=== PATIENT | female | born 1995 | race Caucasian/White ===

== ENCOUNTER 2016-04-05 22:39 | Emergency (ER) | payer BC ==
[2016-04-05 22:48] VITALS: BP 109/61
[2016-04-05] MEDS ORDERED: NS 0.9% 1000 ML* 1,000 ML IV ONE (23:56)
[2016-04-06] MEDS ORDERED: NS 0.9% 1000 ML* 1,000 ML IV ONE
[2016-04-06] MEDS ORDERED: Lidocaine 2% VISCOUS* 15 ML UDC SWISH SPIT ONE (00:23)
[2016-04-06] MEDS ORDERED: Acetaminophen TAB* 325 MG PO ONE (00:23)
[2016-04-06 00:38] LABS: Hematocrit 39 % (35-47); Hemoglobin 12.9 g/dl (12.0-16.0); Mean Corpuscular HGB Conc 33 g/dl (31-36); Mean Corpuscular Hemoglobin 31 pg (27-31); Mean Corpuscular Volume 93 fL (80-97); Mean Platelet Volume 9 um3 (7.4-10.4); Red Blood Count 4.18 10^6/ul (4.0-5.4); Red Cell Distribution Width 12 % (10.5-15); White Blood Count 13.7 10^3/ul (3.5-10.8)
[2016-04-06 00:52] LABS: BUN/Creatinine Ratio 17.3 (8-20); Calcium 9.3 mg/dL (8.6-10.3); EGFR African American 115.9 (>60); EGFR Non-African American 90.1 (>60); Potassium 3.3 mmol/L (3.5-5.0)
--- NOTE | 2016-04-06 00:53 | ED ---
Francis Mcdaniel Michael, scribed for Jennifer Goss MD on 04/06/16 at 0015 . HPI Febrile Illness - HPI Summary HPI Summary: 20 y/o female comes to the ED presenting with a fever of 100.2. The pt was dx with tonsillitis one week ago at Urgent Care in [place], [place]. She was given a prescription of Amoxicillin that ends one day ago on 04/04/16. The pt missed two doses of her prescription. After missing a dose on 04/04/16, the pt's sx started to worsen. She c/o a sore throat, right ear ache, dysphasia, abd pain, and Sanchez. The SANCHEZ is alleviated with Advil, and the pt took Advil, along with Amoxicillin, three hours ago. The abd pain started after taking the abx tonight.Denies n/v. No diarrhea. no cough. Reports painful swallowing. No sick contact. The PMHx is significant for Infectious Mononucleosis 2 years ago. The pt's LNMP was , and the pt's GPA is . - History of Current Complaint Chief Complaint: EDFluSymptoms Time Seen by Provider: 04/05/16 23:55 Hx Obtained From: Patient, Medical Records Onset/Duration: Started Hours Ago, Still Present Timing: Constant Temperature: 100.2 F Initial Severity: Moderate Current Severity: Moderate Pain Intensity: 7 Pain Scale Used: 0-10 Numeric Aggravating Factors: Other: - missing abx dose Associated Signs and Symptoms: Headache, Nausea, Other: - fever. sore throat. ear ache. dysphasia. abd pain. - Allergy/Home Medications Allergies/Adverse Reactions: Allergies Allergy/AdvReac Type Severity Reaction Status Date / Time No Known Allergies Allergy Verified 04/06/16 00:33 PMH/Surg Hx/FS Hx/Imm Hx Previously Healthy: Yes Infectious Disease History: No Infectious Disease History: Denies: Traveled Outside the [place] in Last 30 Days - Family History Known Family History: Positive: None Family History: pt denies a signifiacant FHx - Social History Occupation: Student Lives: With Family Hx Substance Use: No Hx Tobacco Use: No Review of Systems Positive: Fever, Fatigue Eyes: Negative Positive: Sore Throat, Ear Ache, Other - dysphagia Cardiovascular: Negative Respiratory: Negative Positive: Abdominal Pain, Nausea Genitourinary: Negative Musculoskeletal: Negative Skin: Negative Positive: Headache Psychological: Normal All Other Systems Reviewed And Are Negative: Yes Physical Exam Triage Information Reviewed: Yes Vital Signs On Initial Exam: Initial Vitals Temp Pulse Resp BP Pulse Ox 100.2 F 106 20 109/61 98 04/05/16 22:45 04/05/16 22:45 04/05/16 22:45 04/05/16 22:45 04/05/16 22:45 Vital Signs Reviewed: Yes Appearance: Positive: Well-Appearing, No Pain Distress, Well-Nourished Skin: Positive: Warm, Skin Color Reflects Adequate Perfusion Head/Face: Positive: Normal Head/Face Inspection Eyes: Positive: Normal, EOMI, HECTOR, Conjunctiva Clear ENT: Positive: Pharyngeal erythema - mild edema oropharynx, small ulcerative lesion on right tonsil. uvula midline. No exudate no PND, Nasal congestion - turbinates inflammed and boggy, TMs normal - scant fluid right ear No TM. Negative: Pharynx normal Neck: Positive: Supple, Nontender, No Lymphadenopathy Respiratory/Lung Sounds: Positive: Clear to Auscultation, Breath Sounds Present. Negative: Rales, Wheezes Cardiovascular: Positive: Normal, RRR. Negative: Murmur Abdomen Description: Positive: Nontender, No Organomegaly, Soft Bowel Sounds: Positive: Present Musculoskeletal: Positive: Normal, Strength/ROM Intact Neurological: Positive: Normal, Sensory/Motor Intact, Alert, Oriented to Person Place, Time Psychiatric: Positive: Normal AVPU Assessment: Alert - [place] Coma Scale Best Eye Response: 4 - Spontaneous Best Motor Response: 6 - Obeys Commands Best Verbal Response: 5 - Oriented Diagnostics - Vital Signs Vital Signs Temp Pulse Resp BP Pulse Ox 04/05/16 22:45 100.2 F 106 20 109/61 98 - Laboratory Lab Results: Lab Results 04/06/16 04/06/16 Range/Units 00:30 00:30 WBC 13.7 H (3.5-10.8) 10^3/ul RBC 4.18 (4.0-5.4) 10^6/ul Hgb 12.9 (12.0-16.0) g/dl Hct 39 (35-47) % MCV 93 (80-97) fL MCH 31 (27-31) pg MCHC 33 (31-36) g/dl RDW 12 (10.5-15) % Plt Count 202 (150-450) 10^3/ul MPV 9 (7.4-10.4) um3 Neut % (Auto) 86.4 H (38-83) % Lymph % (Auto) 8.6 L (25-47) % [place] % (Auto) 4.5 (1-9) % Eos % (Auto) 0 (0-6) % Baso % (Auto) 0.5 (0-2) % Absolute Neuts (auto) 11.9 H (1.5-7.7) 10^3/ul Absolute Lymphs (auto) 1.2 (1.0-4.8) 10^3/ul Absolute Monos (auto) 0.6 (0-0.8) 10^3/ul Absolute Eos (auto) 0 (0-0.6) 10^3/ul Absolute Basos (auto) 0.1 (0-0.2) 10^3/ul Absolute Nucleated RBC 0 10^3/ul Nucleated RBC % 0 Sodium 134 (133-145) mmol/L Potassium 3.3 L (3.5-5.0) mmol/L Chloride 103 (101-111) mmol/L Carbon Dioxide 25 (22-32) mmol/L Anion Gap 6 (2-11) mmol/L BUN 14 (6-24) mg/dL Creatinine 0.81 (0.51-0.95) mg/dL Est GFR ( Amer) 115.9 (>60) Est GFR (Non-Af Amer) 90.1 (>60) BUN/Creatinine Ratio 17.3 (8-20) Glucose 168 H (70-100) mg/dL Calcium 9.3 (8.6-10.3) mg/dL Monoscreen Pending Result Diagrams: 04/06/16 00:30 04/06/16 00:30 Lab Statement: Any lab studies that have been ordered have been reviewed, and results considered in the medical decision making process. Re-Evaluation - Re-Evaluation Second Eval Re-Evaluation Time: 02:10 Change: Improved Comment: Pt reports feeling markedly improved folllowing IVF and lidocaine. + po in ED. Will d.c. Rx viscous lidocaine. swish and spit. hydrate. complete Amox Course/Dx - Course Assessment/Plan: Pt presents with c/o throat, right ear pain, fatigue and mild frontal SANCHEZ> States is on Amox for tonsillitis - missed 2 doses, sx increasing today. Improved with alevel and motrin. Pt will appearing with apparent ulcerations on right tonsil. Will give IVF, analgesia. check labs, shelly. visous lidocaine. reassess - Diagnoses Provider Diagnoses: Pharyngitis Discharge - Discharge Plan Condition: Improved Disposition: HOME Prescriptions: Lidocaine 2% VISCOUS* 5 ml SWISH SPIT Q4HR PRN #100 btl PRN Reason: Sore Throat Lidocaine 2% VISCOUS* 5 ml SWISH SPIT Q4HR PRN #100 btl PRN Reason: Sore Throat Patient Education Materials: Pharyngitis (ED) Referrals: [facility] [Primary Care Provider] - Additional Instructions: - Stay well hydrated. Drink plenty of non-alcoholic, non-caffinated beverages - Okay to alternate ibuprofen (advil, motrin) and tylenol every 3 hours for pain. Take with food - Finish your antibiotics as previously prescribed - Resume your flonase as previous - gargle and spit with lidocaine (numbing medication) every 6 hours for pain - Contact the health center to schedule a follow-up appointment. Contact the health center or return with questions or concerns The documentation as recorded by the Francis turk Michael accurately reflects the service I personally performed and the decisions made by me, Jennifer Goss MD.
[2016-04-06 01:12] LABS: Manual Entry Verification LOR0008; Mono Internal Control QC Line Present
== END 2016-04-06 01:32 | disposition home or self-care (01) ==
LOC: ED 22:39
DX: J02.9 Acute pharyngitis, unspecified (principal)
CPT/HCPCS: 36415; 80048; 85025; 86308; 96360; 99282; A9270-GY

== ENCOUNTER 2018-10-09 22:37 | Emergency (ER) | payer BC ==
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
[2018-10-10] MEDS ORDERED: Ibuprofen TAB* 600 MG PO ONE (00:42)
[2018-10-10 01:27] VITALS: BP 106/60
== END 2018-10-10 01:26 | disposition home or self-care (01) ==
LOC: ED 22:37
DX: S09.90XA Unspecified injury of head, initial encounter (principal); S01.112A Laceration without foreign body of left eyelid and periocular area, initial encounter; W50.0XXA Accidental hit or strike by another person, initial encounter; Y92.838 Other recreation area as the place of occurrence of the external cause
CPT/HCPCS: 12011; 70450; 99282; A9270-GY